=== PATIENT | female | born 1995 | race Two or more races ===

== ENCOUNTER 2020-08-21 13:12 | Outpatient (REF) | payer OTHER, SELFPAY | END 2020-08-21 13:13 | disposition home or self-care (01) | LOC: HO.LAB 13:12 | PROVIDERS: Visit Provider Internal Medicine | DX: Z20.828 Contact with and (suspected) exposure to other viral communicable diseases (principal) | CPT/HCPCS: C9803; U0003 ==

== ENCOUNTER 2020-08-26 09:49 | Outpatient (REF) | payer OTHER, SELFPAY | END 2020-08-26 09:50 | disposition home or self-care (01) | LOC: HO.LAB 09:49 | PROVIDERS: Visit Provider Internal Medicine | DX: Z20.828 Contact with and (suspected) exposure to other viral communicable diseases (principal) | CPT/HCPCS: C9803; U0003 ==

== ENCOUNTER 2020-09-17 10:16 | Outpatient (REF) | payer OTHER, SELFPAY | END 2020-09-17 10:17 | disposition home or self-care (01) | LOC: HO.LAB 10:16 | PROVIDERS: Visit Provider Internal Medicine | DX: Z20.828 Contact with and (suspected) exposure to other viral communicable diseases (principal) | CPT/HCPCS: C9803; U0003 ==

== ENCOUNTER 2025-05-01 08:16 | Outpatient (REF) | payer OTHER, SELFPAY ==
[2025-05-01 09:53] LABS: MANUAL DIFF FLAG NO
[2025-05-01 10:46] LABS: Hematocrit 33.4 % (37.0-47.0); Hemoglobin 10.5 g/dl (12.0-16.0); Imm Gran Abs Auto 0.10 X10*3/uL (0.00-0.03); Imm Gran Pct Auto 1.3 % (0.0-0.4); Lymphocytes Absolute Auto 2.1 X10*3/uL (1.2-4.9); Mean Corpuscular HGB Conc 31.4 g/dl (31.0-35.0); Mean Corpuscular Hemoglobin 25.4 pg (27.0-33.0); Mean Corpuscular Volume 80.7 fL (80.0-98.0); NRBC Abs Auto 0.000 X10*3/uL (0.0-0.012); NRBC Pct Auto 0.0 /100WBC (0.0-0.2); Platelet Count 387 X10*3/uL (160-400); Red Blood Count 4.14 X10*6/uL (4.20-5.50); White Blood Count 8.0 X10*3/uL (4.8-10.8)
[2025-05-01 11:14] LABS: Alanine Aminotransferase 22 U/L (0-31); Albumin Level 4.1 g/dL (3.5-5.0); Alkaline Phosphatase 91 U/L (39-117); Anion Gap 10 (12-20); Aspartate Amino Transferase 21 U/L (5-31); Blood Urea Nitrogen 14 mg/dL (9-16); Calcium 9.0 mg/dL (8.4-10.2); Carbon Dioxide 26 mmol/L (22-29); Chloride 109 mmol/L (96-108); Cholesterol 169 mg/dL (<200); Estimated Glomerular Filt Rate > 60; HDL Cholesterol 39 mg/dL (>40); Potassium 4.4 mmol/L (3.3-5.1); Sodium 141 mmol/L (135-145); Total Protein 7.0 g/dL (6.5-8.0); Triglycerides 92 mg/dL (<150)
[2025-05-01 11:56] LABS: Folate 12.6 ng/mL (> or = 4.0); Vitamin B12 621 pg/mL (200-900)
== END 2025-05-01 08:17 | disposition home or self-care (01) ==
LOC: HO.LAB 08:16
DX: Z76.89 Persons encountering health services in other specified circumstances (principal); N92.6 Irregular menstruation, unspecified; F32.A Depression, unspecified; F41.9 Anxiety disorder, unspecified; E66.9 Obesity, unspecified; Z68.41 Body mass index [BMI] 40.0-44.9, adult; M54.9 Dorsalgia, unspecified; G47.00 Insomnia, unspecified; Z13.220 Encounter for screening for lipoid disorders; Z00.00 Encounter for general adult medical examination without abnormal findings; Z13.21 Encounter for screening for nutritional disorder
CPT/HCPCS: 36415; 80053; 80061; 82306; 82607; 82746; 84443; 85025; 96127; 99202

== ENCOUNTER 2025-05-01 08:16 | Outpatient (AMB) | payer OTHER, SELFPAY ==
[2025-05-01 08:40] VITALS: BP 124/82; PULSE 74; O2SAT 98; BMI 42.1
--- NOTE | 2025-05-01 08:40 | MHC.PC.OV ---
Vital Signs 05/01/25 08:40 Height 5 ft 11 in Weight 302 lb BMI 42.1 BP 124/82 Blood Pressure Location Lt brachial Position Sitting Pulse 74 Pulse Source Pulse Oximeter Pulse Oximetry (%) 98 Oxygen Delivery Method Room Air Intake Visit Reasons: [employer] annual physical Allergies seafood Allergy (Severe, Verified 05/01/25 10:41) Hive Tobacco use date assessed: 05/01/25 Dental Screening Dental Screen Date: 05/01/25 Did you have a dental visit in the last 12 months?: Yes Did you have a dental problem in the last 6 months where you did not have access to dental care?: No Was dental information given to patient?: Patient has dentist HPI [employer] annual physical HPI Details 30 year old female coming to the office for the first time. Presenting for management of anxiety, insomnia, and back pain. Anxiety, Previously managed with hydroxyzine, used as needed for sleep disturbances related to anxiety. The patient reports that hydroxyzine was sometimes helpful. She experiences anxiety that affects her sleep and has been using melatonin as an alternative. The patient reports difficulty sleeping for one to two nights at a time, which is exacerbated by anxiety. She has been using melatonin to aid sleep. The patient screened positive for depression and reports episodes of crying and emotional distress related to personal relationships. She is interested in counseling but does not wish to start medication for depression at this time. The patient reports irregular menstrual cycles, with some cycles lasting up to seven or eight days and being heavy. She does not wish to pursue treatment for menstrual regulation at this time. The patient reports lower back pain for approximately one year, which worsens with prolonged standing and is somewhat relieved by lying down. She attributes some of the pain to breast size and is considering a breast reduction. The pain is described as tight and is located in the lower back. [facility] Family History (System 05/01/25 @ 10:41 by Arlyn Gallegos) Mother Diabetes Ovarian cancer HTN (hypertension) Father No problems noted. Brother No problems noted. Maternal Aunt Breast cancer Paternal Aunt Breast cancer Female Reproductive History Menstrual Duration of menses: 8-10 days control method: none Total pregnancies: 0 History of abnormal pap smear: No History of abnormal mammogram: No Questionnaire PHQ-9 Over the last 2 weeks, how often have you been bothered by any of the following problems? 1. Little interest or pleasure in doing things: more than half the days 2. Feeling down, depressed, or hopeless: more than half the days 3. Trouble falling or staying asleep, or sleeping too much: more than half the days 4. Feeling tired or having little energy: more than half the days 5. Poor appetite or overeating: not at all 6. Feeling bad about yourself - or that you are a failure or have let yourself or your family down: not at all 7. Trouble concentrating on things, such as reading the newspaper or watching television: several days 8. Moving or speaking so slowly that other people could have noticed. Or the opposite - being so fidgety or restless that you have been moving around a lot more than usual: not at all 9. Thoughts that you would be better off or of hurting yourself in some way: not at all Total score: 9 Depression Screening Interpretation: Positive (referral placed to therapy) Depression Screening Follow-up: Existing condition Depression Screening Done: Yes 64002 - PHQ-9 Billing: Yes Source: Developed by Drs. Herson Mcgovern, Asiya Chanel, Rolan Warner and colleagues, with an educational maryam from [employer]. Thrive Questionnaire Date Thrive assessed: 05/01/25 I am a: Patient What is your living situation today?: I have a steady place to live Within the past 12 months, did the food you bought not last and you didn't have the money to get more?: Sometimes True Within the past 12 months, did you worry whether your food would run out before you got money to buy more?: I choose not to answer this question Do you have trouble getting transportation to medical appointments?: No Do you have trouble paying your heating and electricity bill?: No Do you have trouble taking care of your child, family member or friend?: No Do you have trouble with day-to-day activities such as bathing, preparing meals, shopping, managing finances, etc.?: No Are you currently unemployed and looking for a job?: No Are you interested in more education?: No Currently or been in a relationship where the following occur: No concerns reported THRIVE Score: 1 AUDIT C Alcohol Use Questionnaire (AUDIT-C) 1. How often do you have a drink containing alcohol?: Never 3. How often do you have six or more drinks on one occasion?: Never Total Score: 0 JOSSELIN-7 AMB Questionnaire JOSSELIN-7 Date JOSSELIN - 7 assessed: 05/01/25 Feeling nervous, anxious, or on edge: 2 = More than half the days Not being able to stop or control worryin = Several days Worrying too much about different things: 2 = More than half the days Trouble relaxin = More than half the days Being so restless that it is hard to sit still: 1 = Several days Becoming easily annoyed or irritable: 2 = More than half the days Feeling afraid as if something awful might happen: 1 = Several days Total JOSSELIN-7 score (0-4 normal; 5-9 mild; 10-14 moderate; 15-21 severe): 11 Source: Developed by Drs. Herson Mcgovern, Asiya Chanel, Rolan Warner and colleagues, with an educational maryam from [employer]. JOSSELIN-7 Assessment Billing JOSSELIN-7 Assessment Tool: JOSSELIN-7 Assessment 01860 Review of Systems Const Denies body aches, Denies chills, Denies fever(s), Denies headache(s) and Denies poor appetite Eyes Reports no additional complaints ENT Denies dysphagia, Denies dizziness, Denies headache(s) and Denies odynophagia Card Denies chest pain, Denies syncope, Denies edema, Denies irregular heart rhythm, Denies lightheadedness and Denies dyspnea Resp Denies cough and Denies dyspnea GI Denies abdominal pain, Denies constipation, Denies dysphagia, Denies diarrhea, Denies nausea, Denies odynophagia and Denies vomiting Reports no additional complaints Musc Reports no additional complaints and Denies abnormal gait Skin/Breast Reports system reviewed and no additional complaints, except as documented Neuro Denies abnormal gait, Denies dizziness, Denies syncope and Denies headache(s) Psych Reports no additional complaints Physical exam (Primary Care) Vital Signs: Last Vital Signs Pulse 74 05/01/25 08:40 BP 124/82 05/01/25 08:40 Pulse Ox 98 05/01/25 08:40 Oxygen Delivery Method Room Air 05/01/25 08:40 BMI result Body Mass Index 42.1 Tobacco/Smoking Status: Tobacco use Status Tobacco use date assessed 05/01/25 05/01/25 08:50 Patient Tobacco Use Status Never used Tobacco 05/01/25 08:50 Tobacco use type Cigarette 05/01/25 08:50 PHQ-9: PHQ-9 Score PHQ-9: Total score 9 05/01/25 09:23 Depression Screening Interpretation: Positive (referral placed to therapy) Depression Screening Follow-up: Existing condition Thrive Assessment: Date of Thrive Assessment Date Thrive assessed 05/01/25 05/01/25 08:40 Currently or been in a relationship where the following occur: No concerns reported Const General: cooperative, healthy appearing, comfortable and no acute distress Orientation/consciousness: patient oriented x3 HENMT Head: Yes normocephalic Ears: hearing grossly normal bilaterally General nose exam: Normal external nose present Eyes General: appearance normal, both eyes and all related structures Conjunctivae: conjunctivae normal Neck Neck: Yes full ROM and Yes no lymphadenopathy Resp Effort & Inspection: normal respiratory effort Auscultation: clear to auscultation bilaterally, no crackles, no rales, no rhonchi and no wheezes Cardio Rate: regular rate Rhythm: regular rhythm Back/Spine/Pelvis Other: tenderness to lumbar spine and left paraspinal muscles. Neg SLR test patricia Skin General skin exam: no rashes or lesions noted Neuro General: patient oriented x3 Gait exam (Neuro): Normal gait present Extrem General: Yes normal to inspection, Yes full ROM and No edema Psych Affect: normal affect Attitude: cooperative Insight: Good insight present (Psych) Judgement: Good judgement present (Psych) Coding Level of Care Code New Pt Level 4 (19809) Diagnoses Irregular menses N92.6 Depression F32.A Anxiety F41.9 Obesity (BMI 30-39.9) E66.9 Back pain M54.9 Insomnia G47.00 Screening for hypercholesterolemia Z13.220 Additional Codes JOSSELIN-7 Assessment Billing - JOSSELIN-7 Assessment Tool: JOSSELIN-7 Assessment 04043 ([id number]) PHQ-9 - 93300 - PHQ-9 Billing: Yes ([id number]) Assessment & Plan Assessment & Plan (1) Irregular menses: Code(s): N92.6 - Irregular menstruation, unspecified Category: Medical Plan: Declining HRT at this time. Plan to refer to reducing salon attendant. (2) Depression: Code(s): F32.A - Depression, unspecified Category: Medical Plan: Patient tested positive for PHQ-9 today. She declines thoughts of self-harm at this time. She is not interested in medical management but would like a referral for counseling. Referral was placed today (3) Anxiety: Code(s): F41.9 - Anxiety disorder, unspecified Category: Medical Plan: See above (4) Obesity (BMI 30-39.9): Code(s): E66.9 - Obesity, unspecified Category: Medical Plan: Healthy diet and regular exercise is encouraged. Patient was counseled today on the risks and benefits of GLP-1 injections as well as the dosing schedule. She has no family history or personal history of thyroid disease and no gallbladder disease. Discussed with the patient the potential GI side effects of this medication. Plan to have repeat blood work after one month of therapy to monitor kidney and liver function before increasing the dose of this medication. Follow up in 2 months for a weight check. (5) Back pain: Code(s): M54.9 - Dorsalgia, unspecified Category: Medical Plan: Patient having mid to low back pain. Discussed this may be related to her posture and footwear as she does stand for prolonged periods of time which seems to exacerbate the pain. Recommend heat, lidocaine patches, tylenol and ibuprofen as needed. Referral was placed to PT. Plan to defer x-rays at this time (6) Insomnia: Code(s): G47.00 - Insomnia, unspecified Category: Medical Plan: Restarted on hydroxyzine as needed (7) Screening for hypercholesterolemia: Code(s): Z13.220 - Encounter for screening for lipoid disorders Category: Medical Plan: Blood work ordered Plan The patient will continue using hydroxyzine as needed for anxiety and insomnia, with a prescription sent to the pharmacy. A referral for counseling has been made to address depression, with the patient opting to start with therapy rather than medication. For back pain, physical therapy has been recommended, and supportive footwear is advised to alleviate symptoms. A referral for a breast reduction consultation has been initiated due to the contribution of breast size to back pain. Lidocaine patches have been prescribed for pain management. Routine blood work has been ordered to assess kidney, liver, electrolytes, thyroid, vitamins, and cholesterol levels. The patient has been advised on weight management strategies, including the potential use of weight loss injections, with a focus on maintaining a healthy diet and exercise regimen. Follow-up appointments have been scheduled to monitor progress and adjust treatment as necessary. This note was constructed using voice recognition software. While every effort has been made to ensure accuracy and type photography supervisor, still areas may have been included sometimes these areas may affect the content or meeting of the given symptoms. Total time spent caring for the patient today was 30 minutes. This includes time spent before the visit reviewing the chart, time spent during the visit, and time spent after the visit and documentation. Patient was informed and verbally consented to the use of an ambient scribe for clinic note documentation during this visit. Orders: Orders Vitamin D 25-OH Total Today E66.9 - Obesity, unspecified, Z00.00 - Encounter for general adult medical examination without abnormal findings Complete Blood Count Auto Diff Today E66.9 - Obesity, unspecified, Z00.00 - Encounter for general adult medical examination without abnormal findings PT Evaluation and Treatment Today M54.9 - Dorsalgia, unspecified Vitamin B12 and Folate Today E66.9 - Obesity, unspecified, Z13.21 - Encounter for screening for nutritional disorder TSH reflex Free T4 Today E66.9 - Obesity, unspecified, Z00.00 - Encounter for general adult medical examination without abnormal findings Comprehensive Met. Panel Today E66.9 - Obesity, unspecified, Z00.00 - Encounter for general adult medical examination without abnormal findings Lipid Panel Today Z13.220 - Encounter for screening for lipoid disorders Referrals Counseling Referral F32.A - Depression, unspecified, F41.9 - Anxiety disorder, unspecified LABEL CODER Referral Z12.4 - Encounter for screening for malignant neoplasm of cervix Medications: New hydroxyzine HCl 25 mg PO BEDTIME 90 tabs 0RF semaglutide (weight loss) (Ning) administer weeks 1 through 4 of therapy 0.25 mg (0.5 mL) subcut QWEEK 2 mL 0RF E66.9 - Obesity, unspecified lidocaine 5% leave on most painful area for up to 12 hrs 1 patch topical DAILY 15 ea 0RF
== END 2025-05-01 09:23 | disposition home or self-care (01) ==
LOC: HO.HMCH 08:17
DX: M54.9 Dorsalgia, unspecified (principal); N92.6 Irregular menstruation, unspecified; Z68.41 Body mass index [BMI] 40.0-44.9, adult; E66.9 Obesity, unspecified; F32.A Depression, unspecified; F41.9 Anxiety disorder, unspecified; G47.00 Insomnia, unspecified; Z13.220 Encounter for screening for lipoid disorders

== ENCOUNTER 2025-07-02 09:24 | Outpatient (AMB) | payer OTHER, SELFPAY ==
--- NOTE | 2025-07-02 09:29 | A.OFFPC_ITS ---
Vital Signs 07/02/25 09:31 Height 5 ft 11 in Weight 300 lb 2 oz BMI 41.9 BP 102/60 Blood Pressure Location Lt brachial Position Sitting Pulse 62 Pulse Source Pulse Oximeter Pulse Oximetry (%) 90 L Oxygen Delivery Method Room Air Intake Visit Reasons: f/u weight loss Heel Burnisher Required: No Accompanied by: Self / Same As Patient Allergies seafood Allergy (Severe, Verified 07/02/25 09:39) Hive Medication List - Last Reconciled 07/02/25 by Shabnam Murrell PA-C hydroxyzine HCl 25 mg PO BEDTIME Tobacco use date assessed: 05/01/25 Dental Screening Dental Screen Date: 07/02/25 Did you have a dental visit in the last 12 months?: Yes Did you have a dental problem in the last 6 months where you did not have access to dental care?: No Was dental information given to patient?: Patient has dentist HPI f/u weight loss HPI Details 30-year-old female with past medical his tory of anxiety, depression, irregular menses last seen 04/2025 coming in for follow up.? Presenting for a follow-up visit and evaluation of ear pain. Ear pain began on Wednesday, affecting the left ear, with hearing difficulty and a beeping sensation. No fever or difficulty swallowing was reported. Chronic back pain persists, with a previous referral for physical therapy not followed up due to contact information changes. Erzy-olt-ohyzixe lidocaine patches are used for pain management. The patient is actively involved in weight management, attending the gym for over six months with a personal computer network engineer, but has reached a weight loss plateau. Insurance denied weight loss medication coverage due to lack of documented attempts with other methods. Referral to weight management for potential surgical options was discussed. [facility] Family History Mother Diabetes Ovarian cancer HTN (hypertension) Father No problems noted. Brother No problems noted. 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 1. Little interest or pleasure in doing things: several days 2. Feeling down, depressed, or hopeless: several days 3. Trouble falling or staying asleep, or sleeping too much: not at all 4. Feeling tired or having little energy: several days 5. Poor appetite or overeating: not at all 6. Feeling bad about yourself - or that you are a failure or have let yourself or your family down: not at all 7. Trouble concentrating on things, such as reading the newspaper or watching television: not at all 8. Moving or speaking so slowly that other people could have noticed. Or the opposite - being so fidgety or restless that you have been moving around a lot more than usual: not at all 9. Thoughts that you would be better off or of hurting yourself in some way: not at all Total score: 3 90062 - PHQ-9 Billing: Yes Source: Developed by Drs. Herson Mcgovern, Asiya Chanel, Rolan Warner and colleagues, with an educational maryam from [employer]. Thrive Questionnaire Date Thrive assessed: 07/02/25 I am a: Patient What is your living situation today?: I have a steady place to live Within the past 12 months, did the food you bought not last and you didn't have the money to get more?: Sometimes True Within the past 12 months, did you worry whether your food would run out before you got money to buy more?: I choose not to answer this question Do you have trouble paying for medicines?: No Do you have trouble getting transportation to medical appointments?: No Do you have trouble paying your heating and electricity bill?: No Do you have trouble taking care of your child, family member or friend?: No Do you have trouble with day-to-day activities such as bathing, preparing meals, shopping, managing finances, etc.?: No Are you currently unemployed and looking for a job?: No Are you interested in more education?: No Please select the resources that you would like help with: None Currently or been in a relationship where the following occur: Controlled Emotionally THRIVE Score: 2 AUDIT C Alcohol Use Questionnaire (AUDIT-C) 3. How often do you have six or more drinks on one occasion?: Never Total Score: 0 JOSSELIN-7 AMB Questionnaire JOSSELIN-7 Date JOSSELIN - 7 assessed: 05/01/25 Source: Developed by Drs. Herson Mcgovern, Asiya Chanel, Rolan Warner and colleagues, with an educational maryam from [employer]. Review of Systems Const Denies body aches, Denies chills, Denies fever(s), Denies headache(s) and Denies poor appetite Eyes Reports no additional complaints ENT Reports as per HPI, Denies dysphagia, Denies dizziness, Denies headache(s) and Denies odynophagia Card Denies chest pain, Denies edema, Denies lightheadedness and Denies dyspnea Resp Denies dyspnea GI Denies abdominal pain, Denies dysphagia, Denies nausea, Denies odynophagia and Denies vomiting Reports no additional complaints Musc Reports no additional complaints and Denies abnormal gait Skin/Breast Reports system reviewed and no additional complaints, except as documented Neuro Denies abnormal gait, Denies dizziness and Denies headache(s) Psych Reports no additional complaints Physical exam (Primary Care) Vital Signs: Last Vital Signs Pulse 62 07/02/25 09:31 BP 102/60 07/02/25 09:31 Pulse Ox 90 L 07/02/25 09:31 Oxygen Delivery Method Room Air 07/02/25 09:31 BMI result Body Mass Index 41.9 Tobacco/Smoking Status: Tobacco use Status Tobacco use date assessed 05/01/25 07/02/25 09:36 Patient Tobacco Use Status Never used Tobacco 07/02/25 09:36 Tobacco use type Cigarette 07/02/25 09:36 PHQ-9: PHQ-9 Score PHQ-9: Total score 3 07/02/25 11:40 Thrive Assessment: Date of Thrive Assessment Date Thrive assessed 07/02/25 07/02/25 09:36 Currently or been in a relationship where the following occur: Controlled Emotionally Const General: cooperative, healthy appearing, comfortable and no acute distress Orientation/consciousness: patient oriented x3 HENMT Other: No blood in bilateral ear canals Head: Yes normocephalic Ears: hearing grossly normal bilaterally, TM normal on the right, Abnormal EAC present erythema on the left; no otic discharge and TM abnormal bulging on the left and erythematous on the left General nose exam: Normal external nose present Eyes General: appearance normal, both eyes and all related structures Conjunctivae: conjunctivae normal Neck Neck: Yes full ROM and Yes no lymphadenopathy Resp Effort & Inspection: normal respiratory effort Auscultation: clear to auscultation bilaterally, no crackles, no rales, no rhonchi and no wheezes Cardio Rate: regular rate Rhythm: regular rhythm Skin General skin exam: no rashes or lesions noted Neuro General: patient oriented x3 Gait exam (Neuro): Normal gait present Extrem General: Yes normal to inspection, Yes full ROM and No edema Psych Affect: normal affect Attitude: cooperative Insight: Good insight present (Psych) Judgement: Good judgement present (Psych) Coding Level of Care Code Est Pt Level 3 (90044) Diagnoses Depression F32.A Anxiety F41.9 Back pain M54.9 Insomnia G47.00 Morbid obesity E66.01 Otitis media H66.90 Anemia D64.9 Dermatitis L30.9 Additional Codes PHQ-9 - 00268 - PHQ-9 Billing: Yes ([id number]) Assessment & Plan Assessment & Plan (1) Depression: Code(s): F32.A - Depression, unspecified Category: Medical Plan: Referral was placed to counseling at last visit. She was seen by [facility] for intake but did not like counseling. She feels her anxiety and depression are well managed at this time and declining medication or counseling (2) Anxiety: Code(s): F41.9 - Anxiety disorder, unspecified Category: Medical Plan: See above (3) Back pain: Code(s): M54.9 - Dorsalgia, unspecified Category: Medical Plan: The patient was advised to follow up with physical therapy for back pain management. Csch-fak-fllyplg lidocaine patches are being used for pain relief. I updated the order for physical therapy and patient will reach out if she does not hear from PT in 1 week (4) Insomnia: Code(s): G47.00 - Insomnia, unspecified Category: Medical Plan: Restarted on hydroxyzine at her last visit and feels this has been working for her. (5) Morbid obesity: Code(s): E66.01 - Morbid (severe) obesity due to excess calories Category: Medical Plan: Healthy diet and regular exercise is encouraged. Injections were denied by insurance and referral was placed to weight management today. She has been working with a personal computer network engineer for diet and exercise and has been unable to lose significant weight. (6) Otitis media: Code(s): H66.90 - Otitis media, unspecified, unspecified ear Category: Medical Plan: The patient will be treated with oral antibiotics and ear drops due to the presence of an ear infection in the left ear. Instructions were given to avoid inserting anything into the ears during the healing process. Reach out if symptoms worsen or do not improve. (7) Anemia: Code(s): D64.9 - Anemia, unspecified Category: Medical Plan: The patient has a history of low hemoglobin, possibly related to irregular and heavy menstrual periods. A repeat blood test was ordered to monitor hemoglobin levels. (8) Dermatitis: Code(s): L30.9 - Dermatitis, unspecified Category: Medical Plan: Very mild contact dermatitis with the bra strap meats the back. Hydrocortisone sent to pharmacy to be used as needed no longer than 14 days at a time Plan During the visit, I discussed with the patient the presence of an ear infection and the need for antibiotics and ear drops. We also talked about the importance of avoiding inserting objects into the ears during the healing process. I explained the need for a repeat blood test to monitor hemoglobin levels due to a history of low hemoglobin. We reviewed the management of chronic back pain, including the use of lidocaine patches and the importance of following up with physical therapy. Additionally, we discussed weight management strategies and the possibility of surgical options, with a referral to weight management being made. This note was constructed using voice recognition software. While every effort has been made to ensure accuracy and director of quality control, still areas may have been included sometimes these areas may affect the content or meeting of the given symptoms. Total time spent caring for the patient today was 20 minutes. This includes time spent before the visit reviewing the chart, time spent during the visit, and time spent after the visit and documentation. Patient was informed and verbally consented to the use of an ambient scribe for clinic note documentation during this visit. Orders: Orders IRON PROFILE Today N92.6 - Irregular menstruation, unspecified PT Evaluation and Treatment Today M54.9 - Dorsalgia, unspecified Referrals Medical Weight Management Referral E66.01 - Morbid (severe) obesity due to excess calories Medications: New amoxicillin-pot clavulanate 875-125 mg 1 tab PO BID 14 tabs 0RF ciprofloxacin-dexamethasone 0.3-0.1 % 4 drps otic (ear) left BID 7.5 mL 0RF 7 days lactobacillus combo no.11 (Probiotic) do not crush/chew/cut; swallow whole OR may open and sprinkle in cold dr ink/food 1 cap PO DAILY 14 caps 0RF hydrocortisone 1% (Anti-Itch (hydrocortisone)) 1 appl topical TID PRN 28.4 grams 0RF skin irritation
[2025-07-02 09:31] VITALS: BP 102/60; PULSE 62; O2SAT 90; BMI 41.9
== END 2025-07-02 10:00 | disposition home or self-care (01) ==
LOC: HO.HMCH 09:25
DX: F32.A Depression, unspecified (principal); F41.9 Anxiety disorder, unspecified; E66.01 Morbid (severe) obesity due to excess calories; Z68.41 Body mass index [BMI] 40.0-44.9, adult; H66.92 Otitis media, unspecified, left ear; M54.9 Dorsalgia, unspecified; G47.00 Insomnia, unspecified; D64.9 Anemia, unspecified; L30.9 Dermatitis, unspecified

== ENCOUNTER → 2025-07-02 09:24 | Outpatient (BNVA) | payer OTHER, SELFPAY | DX: H66.92 Otitis media, unspecified, left ear (principal); M54.9 Dorsalgia, unspecified; F32.A Depression, unspecified; F41.9 Anxiety disorder, unspecified; G47.00 Insomnia, unspecified; E66.01 Morbid (severe) obesity due to excess calories; H66.90 Otitis media, unspecified, unspecified ear; D64.9 Anemia, unspecified; L30.9 Dermatitis, unspecified; N92.6 Irregular menstruation, unspecified; Z68.41 Body mass index [BMI] 40.0-44.9, adult | CPT/HCPCS: 96127; 99212 ==

== ENCOUNTER 2025-08-30 14:49 | Outpatient (REF) | payer OTHER, SELFPAY ==
[2025-08-30 18:09] LABS: Iron 20 mcg/dL (30-160); Percent Iron Saturation 6 % (15-50); Total Iron Binding Capacity 331 mcg/dL (228-428); Unsaturated Iron Binding 311 ug/dL
[2025-08-31 03:45] LABS: Syphilis Screen Nonreactive (Nonreactive)
[2025-08-31 04:22] LABS: HBsAGNum1 0.36 S/CO (0.00-0.99); HIV Num 1 0.07 S/CO (0.00-0.99); Hepatitis B Surface Antigen Negative (Negative); ~HepC Num1 0.11 S/CO (0.00-0.79); ~Hepatitis C Antibody Nonreactive (Nonreactive)
== END 2025-08-30 14:50 | disposition home or self-care (01) ==
LOC: HO.HHCL 14:49
PROVIDERS: Advanced Practice Midwife
DX: Z01.419 Encounter for gynecological examination (general) (routine) without abnormal findings (principal); N92.6 Irregular menstruation, unspecified; N63.20 Unspecified lump in the left breast, unspecified quadrant; E66.01 Morbid (severe) obesity due to excess calories; M54.9 Dorsalgia, unspecified; Z68.41 Body mass index [BMI] 40.0-44.9, adult; Z11.59 Encounter for screening for other viral diseases; Z11.4 Encounter for screening for human immunodeficiency virus [HIV]; Z20.2 Contact with and (suspected) exposure to infections with a predominantly sexual mode of transmission
CPT/HCPCS: 36415; 83540; 86780; 86803; 87340; 87389; 99385

== ENCOUNTER 2025-08-30 14:49 | Outpatient (AMB) | payer OTHER, SELFPAY ==
--- NOTE | 2025-08-30 14:52 | A.OFFVIS_ITS ---
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 She is not having any opening machine cleaner concerns but she would like STD screening. She is sexually active but with a female partner who she has been with for about 6 months. She does not need to worry about control she says she has not had sex with a male. She does want to get checked for STDs though. Inquired about getting checked for herpes but she has never had any lesions and she has never noticed any lesions for her any of her partners either. 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 She has a primary care provider. She is going to be having a visit by phone with bariatric 6 in September and is hoping for surgery. She has lost 30 lb by eating healthy and working out and going to the gym but she wants some help and wants to lose the weight for good Her mother had bariatric surgery and lost 200 lb she was 500 when she started. She has sometimes felt a mass on her right breast before her. But has not felt it recently and does not feel it today today during the exam we felt a mass together on the left side. [facility] Medical History (Updated 08/30/25 @ 16:15 by Ronda Perry CNM) Anxiety Depression Surgical History History of wisdom tooth extraction, class I edentulism History of ear surgery Family History Mother Diabetes Ovarian cancer HTN (hypertension) Father No problems noted. Brother No problems noted. 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 Current occupational exposures/hazards: No Cognitive needs: No Hearing needs: No Vision needs: Yes Female Reproductive History Menstrual Age of Menarche: 13 Date of last menstrual period: 08/23/25 control method: none Total pregnancies: 0 History of abnormal pap smear: No Physical Exam Vital Signs: Last Vital Signs BP 108/74 08/30/25 15:10 BMI result Body Mass Index 42.4 Const General: healthy appearing, comfortable, no acute distress, well developed and alert Nutritional Appearance: average body habitus Orientation/consciousness: patient oriented x3 Limitations: no limitations HEENT Head: Yes normocephalic Neck Neck: Yes normal visual inspection Chest Other: Both breasts are very large. Palpable smooth mass left breast about 02:00. Mammogram and ultrasound order and breast surgery consultation placed. Chest palpation & inspection: normal inspection of the chest Breast/axilla inspection: normal inspection of the breasts and normal inspection of the axillae Breast/axilla palpation: normal palpation of the breasts and normal palpation of the axillae Resp Effort & Inspection: normal respiratory effort GI Inspection: Yes normal to inspection, No Abdominal wall edema and No distended Palpation (GI): Soft to palpation and nontender General: Yes bladder normal to palpation External Female Exam: normal external appearance and normal appearance of the urethra Speculum Exam - Vagina: normal appearance of the vagina, normal palpation and normal vaginal discharge Speculum Exam - Cervix: normal appearance of the cervix, normal palpation and nontender Bimanual exam- vagina & uterus: normal bimanual exam, normal palpation, uterine size normal, bladder normal to palpation, consistency normal, normal palpation, uterine mobility normal, uterine shape normal, No Cervical tenderness present, non-tender and no cervical motion tenderness Bimanual Exam- Adnexa, other: normal adnexae, no masses, normal and No adnexal tenderness Neuro General: patient oriented x3 Assessment & Plan Assessment & Plan (1) Palpable mass of breast: Comment: Left breast 02:00 Code(s): N63.0 - Unspecified lump in unspecified breast Category: Medical (2) Irregular menses: Comment: Patient says her menses are monthly and last the same amount of days about 6 or 7,(so they may not be that irregular) Code(s): N92.6 - Irregular menstruation, unspecified Category: Medical (3) Morbid obesity: Comment: Patient has lost 30 lb on her own by eating better and going to the gym and is awaiting bariatric consultation... Code(s): E66.01 - Morbid (severe) obesity due to excess calories Category: Medical (4) Well woman exam with routine gynecological exam: Code(s): Z01.419 - Encounter for gynecological examination (general) (routine) without abnormal findings Category: Medical (5) Cervical cancer screening: Code(s): Z12.4 - Encounter for screening for malignant neoplasm of cervix Category: Medical (6) Screen for sexually transmitted diseases: Code(s): Z11.3 - Encounter for screening for infections with a predominantly sexual mode of transmission Category: Medical Plan Patient is here to establish opening machine cleaner care at this practice. She is not having any opening machine cleaner concerns but she would like STD screening. She is sexually active but with a female partner who she has been with for about 6 months. She does not need to worry about control she says she has not had sex with a male. She does want to get checked for STDs though. Inquired about getting checked for herpes but she has never had any lesions and she has never noticed any lesions for her any of her partners either. 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 She has a primary care provider. She is going to be having a visit by phone with bariatric 6 in September and is hoping for surgery. She has lost 30 lb by eating healthy and working out and going to the gym but she wants some help and wants to lose the weight for good Her mother had bariatric surgery and lost 200 lb she was 500 when she started. She has sometimes felt a mass on her right breast before her period, But has not felt it recently and does not feel it today today during the exam we felt a mass together on the left side. Pap smear was done as well as testing for STIs during the visit patient just finished her periods so end of menses was evident but her cervix pink and smooth and healthy. Testing ordered for STIs that she can get done either downstairs or at the hospital she is on the portal but we would call her for any positives.. I reviewed her menses they are not really all that irregular in that they do come every month last for about 6 or 7 days every month and she has never missed a period. Discussed that sometimes being severely underweight or overweight can often lead to problems with regular menses however thankfully she is still getting her regular menses she does not need control. She is looking forward to proceeding with further efforts to lose the weight and is intent on getting healthier there is a strong family history of diabetes and high blood pressure and she wants to avoid those diagnoses. I congratulated her on her efforts so far and her determination to become healthier. I am also placing a breast surgery consultation because of the mass in the left breast she does have an aunt with breast cancer but she developed it when she was older. Orders: Orders US breast LT limited Today N63.0 - Unspecified lump in unspecified breast CT NG by PCR Vag/Cerv Today Z01.419 - Encounter for gynecological examination (general) (routine) without abnormal findings Pap Smear Today Z01.419 - Encounter for gynecological examination (general) (routine) without abnormal findings MM tomosynthesis diagnostic LT Today N63.0 - Unspecified lump in unspecified breast Hepatitis B Surface Antigen Today E66.01 - Morbid (severe) obesity due to exc ess calories, M54.9 - Dorsalgia, unspecified, N63.0 - Unspecified lump in unspecified breast, N92.6 - Irregular menstruation, unspecified, Z01.419 - Encounter for gynecological examination (general) (routine) without abnormal findings, Z11.3 - Encounter for screening for infections with a predominantly sexual mode of transmission, Z12.4 - Encounter for screening for malignant neoplasm of cervix HIV Ab/Ag Today E66.01 - Morbid (severe) obesity due to excess calories, M54.9 - Dorsalgia, unspecified, N63.0 - Unspecified lump in unspecified breast, N92.6 - Irregular menstruation, unspecified, Z01.419 - Encounter for gynecological examination (general) (routine) without abnormal findings, Z11.3 - Encounter for screening for infections with a predominantly sexual mode of transmission, Z12.4 - Encounter for screening for malignant neoplasm of cervix Hepatitis C Antibody Today E66.01 - Morbid (severe) obesity due to excess calories, M54.9 - Dorsalgia, unspecified, N63.0 - Unspecified lump in unspecified breast, N92.6 - Irregular menstruation, unspecified, Z01.419 - Encounter for gynecological examination (general) (routine) without abnormal findings, Z11.3 - Encounter for screening for infections with a predominantly sexual mode of transmission, Z12.4 - Encounter for screening for malignant neoplasm of cervix Syphilis Screen Today E66.01 - Morbid (severe) obesity due to excess calories, M54.9 - Dorsalgia, unspecified, N63.0 - Unspecified lump in unspecified breast, N92.6 - Irregular menstruation, unspecified, Z01.419 - Encounter for gynecological examination (general) (routine) without abnormal findings, Z11.3 - Encounter for screening for infections with a predominantly sexual mode of transmission, Z12.4 - Encounter for screening for malignant neoplasm of cervix Bacterial Vaginosis Panel Today Z01.419 - Encounter for gynecological examination (general) (routine) without abnormal findings Referrals Breast Surgery Referral E66.01 - Morbid (severe) obesity due to excess calories, M54.9 - Dorsalgia, unspecified, N63.0 - Unspecified lump in unspecified breast, N92.6 - Irregular menstruation, unspecified, Z01.419 - Encounter for gynecological examination (general) (routine) without abnormal findings, Z11.3 - Encounter for screening for infections with a predominantly sexual mode of transmission, Z12.4 - Encounter for screening for malignant neoplasm of cervix Coding Level of Care Code New Pt Prev Care 18-39yr([id number] Diagnoses Palpable mass of breast N63.0 Irregular menses N92.6 Morbid obesity E66.01 Well woman exam with routine gynecological exam Z01.419 Cervical cancer screening Z12.4 Screen for sexually transmitted diseases Z11.3
[2025-08-30 15:10] VITALS: BP 108/74; BMI 42.4
== END 2025-08-30 16:09 | disposition home or self-care (01) ==
LOC: HO.HWSM 14:49
PROVIDERS: Visit Provider Advanced Practice Midwife
DX: Z01.419 Encounter for gynecological examination (general) (routine) without abnormal findings (principal); N63.21 Unspecified lump in the left breast, upper outer quadrant; E66.01 Morbid (severe) obesity due to excess calories; Z68.41 Body mass index [BMI] 40.0-44.9, adult; N92.6 Irregular menstruation, unspecified; Z11.3 Encounter for screening for infections with a predominantly sexual mode of transmission
CPT/HCPCS: 99385; 99459

== ENCOUNTER 2025-08-30 16:06 | Outpatient (REF) | payer OTHER, SELFPAY ==
[2025-08-31 16:45] LABS: Bacterial Vaginosis PCR POSITIVE (Negative); Candida Group PCR NOT DETECTED (Not Detect); Candida glab krusei PCR NOT DETECTED (Not Detect); Trichomonas vaginalis PCR NOT DETECTED (Not Detect)
[2025-08-31 17:16] LABS: CT PCR NOT DETECTED (Not Detect.); NG PCR NOT DETECTED (Not Detect.)
== END 2025-08-30 16:07 | disposition home or self-care (01) ==
LOC: HO.LNP 16:06
PROVIDERS: Visit Provider Advanced Practice Midwife
DX: Z01.419 Encounter for gynecological examination (general) (routine) without abnormal findings (principal); Z20.2 Contact with and (suspected) exposure to infections with a predominantly sexual mode of transmission; Z11.51 Encounter for screening for human papillomavirus (HPV)
CPT/HCPCS: 81515; 87491; 87591; 87626; 88175

== ENCOUNTER 2025-09-28 08:08 | Outpatient (REF) | payer OTHER, SELFPAY ==
--- NOTE | ~2025-09-28 | XR_ITS ---
EXAMINATION: XR CHEST CLINICAL INFORMATION: E66.01 - Morbid (severe) obesity due to excess calories COMPARISON: None available. TECHNIQUE: 2 views of the chest were obtained. FINDINGS: The cardiac, hilar, and mediastinal contours are normal. The lungs are clear bilaterally. There is no pneumothorax or pleural effusion. There is no focal osseous or soft tissue abnormality. XR/XR chest 2V IMPRESSION: Normal chest. Electronically signed by: Jhonatan Ng MD 09/28/2025 04:36 PM [facility]
[2025-09-28 16:15] LABS: MANUAL DIFF FLAG NO
[2025-09-28 17:15] LABS: Hematocrit 33.5 % (37.0-47.0); Hemoglobin 10.0 g/dl (12.0-16.0); Imm Gran Abs Auto 0.10 X10*3/uL (0.00-0.03); Imm Gran Pct Auto 1.1 % (0.0-0.4); Lymphocytes Absolute Auto 2.6 X10*3/uL (1.2-4.9); Mean Corpuscular HGB Conc 29.9 g/dl (31.0-35.0); Mean Corpuscular Hemoglobin 23.8 pg (27.0-33.0); Mean Corpuscular Volume 79.6 fL (80.0-98.0); NRBC Abs Auto 0.000 X10*3/uL (0.0-0.012); NRBC Pct Auto 0.0 /100WBC (0.0-0.2); Platelet Count 449 X10*3/uL (160-400); Red Blood Count 4.21 X10*6/uL (4.20-5.50); White Blood Count 9.0 X10*3/uL (4.8-10.8)
[2025-09-28 17:27] LABS: Appearance Urine Clear; Glucose Urine UA Negative (Negative); PH 6.5 (5.0-9.0); Specific Gravity - Urine 1.015 (1.005-1.025)
[2025-09-28 17:44] LABS: Alanine Aminotransferase 46 U/L (0-31); Albumin Level 4.3 g/dL (3.5-5.0); Alkaline Phosphatase 97 U/L (39-117); Anion Gap 7 (12-20); Aspartate Amino Transferase 28 U/L (5-31); Blood Urea Nitrogen 15 mg/dL (9-16); Calcium 9.3 mg/dL (8.4-10.2); Carbon Dioxide 30 mmol/L (22-29); Chloride 106 mmol/L (96-108); Cholesterol 191 mg/dL (<200); Estimated Glomerular Filt Rate > 60; HDL Cholesterol 39 mg/dL (>40); Iron 27 mcg/dL (30-160); Percent Iron Saturation 8 % (15-50); Potassium 4.1 mmol/L (3.3-5.1); Sodium 139 mmol/L (135-145); Total Iron Binding Capacity 339 mcg/dL (228-428); Total Protein 7.2 g/dL (6.5-8.0); Triglycerides 187 mg/dL (<150); Unsaturated Iron Binding 312 ug/dL
[2025-09-28 18:05] LABS: Ferritin 8 ng/mL (10-122)
[2025-09-28 18:16] LABS: Folate 9.8 ng/mL (> or = 4.0); Vitamin B12 642 pg/mL (200-900)
== END 2025-09-28 08:09 | disposition home or self-care (01) ==
LOC: HO.XRAY 08:08
PROVIDERS: Visit Provider Surgery
DX: Z00.00 Encounter for general adult medical examination without abnormal findings (principal); F32.A Depression, unspecified; F41.9 Anxiety disorder, unspecified; R35.89 Other polyuria; E66.01 Morbid (severe) obesity due to excess calories; K21.9 Gastro-esophageal reflux disease without esophagitis; N92.6 Irregular menstruation, unspecified; N63.0 Unspecified lump in unspecified breast; D50.9 Iron deficiency anemia, unspecified; M54.9 Dorsalgia, unspecified; G47.00 Insomnia, unspecified; R10.8A3 Suprapubic tenderness; L29.9 Pruritus, unspecified; G43.909 Migraine, unspecified, not intractable, without status migrainosus; Z68.41 Body mass index [BMI] 40.0-44.9, adult
CPT/HCPCS: 36415; 71046; 80053; 80061; 81003; 82306; 82607; 82728; 82746; 83036; 83525; 83540; 84425; 84443; 84590; 84630; 85025; 86140; 90471; 90656; 99395

== ENCOUNTER 2025-09-28 08:08 | Outpatient (AMB) | payer OTHER, SELFPAY ==
--- NOTE | 2025-09-28 09:32 | A.OFFVIS_ITS ---
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* Information Security Engineer Required: Yes Information Security Engineer Services: Information Security Engineer Present Information Interpreted: clinical only Allergies seafood Allergy (Severe, Verified 09/28/25 09:33) [facility] Medication List - Last Reconciled 09/28/25 by Andrew Ayala MD ascorbate calcium (vitamin C) 500 mg PO DAILY ferrous sulfate (Feosol) 325 mg PO DAILY hydroxyzine HCl 25 mg PO BEDTIME HPI HPI 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 42.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 ANALYST*: Details: Start time: 9.20am, End time: 10.20am ?I spent 50 minutes speaking with the patient on the phone plus an additional 10 minutes reviewing and updating records for a total of 60 minutes HPI Comments Details: Previous weight loss efforts: Self diets and exercise Wakes up: 5am, Sleeps: 11.30pm Breakfast: skips Lunch: 12pm (meat and rice) Dinner: 6pm (same as lunch) Snacks: 9am (sandwich), 8pm (sandwich) Exercise: none Beverages: Coffee: none, Tea: none, Soda: Sprite x4/wk, Juice: none, ETOH: none PFSH Medical History (Updated 09/28/25 @ 09:36 by Andrew Ayala MD) DJD (degenerative joint disease) GERD (gastroesophageal reflux disease) Anxiety Depression Surgical History History of wisdom tooth extraction, class I edentulism History of ear surgery Family History Mother Diabetes Ovarian cancer HTN (hypertension) Father No problems noted. Brother No problems noted. 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 [employer] Current occupational exposures/hazards: No Cognitive needs: No Hearing needs: No Vision needs: Yes Female Reproductive History Menstrual Age of Menarche: 13 Physical Exam Vital Signs: BMI result Body Mass Index 42.4 Telehealth Telehealth Telehealth Platform: Telephone Location of provider rendering services: practice address Location of patient: address on file Patient Identification confirmed using: Name, : Yes Telehealth method: voice only Patient verbally consented to treatment: Yes Patient verbally consented to billing insurance company: Yes Patient informed of any privacy concerns related to visit: Yes Minutes spent on Phone/Video with Pt.: 60 Assessment & Plan Assessment & Plan (1) Morbid obesity: Comment: Patient has lost 30 lb on her own by eating better and going to the gym and is awaiting bariatric consultation... Code(s): E66.01 - Morbid (severe) obesity due to excess calories Category: Medical Plan: 1.? Plan for lap sleeve gastrectomy. If diaphragmatic or ventral hernias are present at time of surgery, these will be repaired laparoscopically as well. I emphasized the importance of close follow-up, adherence to instructions and good communication. The surgery does not replace the need to change your lifestlyle which is the cause of the obesity problem. The surgery provides the motivation to try again to change your lifestyle, it reduces the appetite and make the transition to a better lifestyle easier and doubles the amount of weight you would lose compared to doing the lifestyle change without the surgery. You will need to be on a liquid diet with protein shakes for 2 weeks before surgery to maximize weight loss and boost your nutritional status to recover better from surgery and also for the first two weeks after surgery to let the stomach heal before we introduce other foods. After the first 2 weeks we will introduce protein bars and soft foods like scrambled eggs, cottage cheese and yogurt and after the 6th week will introduce meat, fish and cooked vegetables in small amounts. Over time you should be able to eat everything in small amounts. Side effects like nausea, vomiting, heartburn or abdominal pain are not common in the practice unless you are not following in the practice. This operation requires lifetime commitment to following in our practice and communication with me. You will much less weight and experience side effects if you don?t communicate or not following in the practice. Complications are rare and in our practice is about 1/10 of the national average. However, you can develop bleeding that may require transfusion (hasn?t happened for year in the practice), you may from complications (we did not have any deaths in the practice) and infections. Infections are usually a result of breakdown in communication or not understanding or following directions correctly. They are difficult to treat, they can happen during the first 6 weeks, they may require to be in the hospital for weeks or even months, not being able to eat by mouth and you may have drains and surgeries to try and correct the issue. Other risks and complications include possible conversion to an open procedure, leaks, small bowel obstruction, blood clots, cardiac, or pulmonary complications, as care home complications such as ulcers, insufficient weight loss and vitamin deficiencies. 2. Nutritional counseling. Start with one premade PREMIER protein (buy at [employer] or [employer]) shake (8oz of Premier and NOT the entire bottle) at 6am-8am, one protein bar (Fit Crunch protein bar, buy at [employer], or [employer]) at 9am-11am, another premade PREMIER protein shake (8oz of Premier and NOT the entire bottle) at 12pm-2pm, another [employer] protein bar at 3pm-5pm,?dinner at 6pm (10 forks of protein and 10 forks of salad/vegetables) and more [employer] protein bars at 8pm-10pm. So you do 2 protein shakes, 3 protein bars and one meal per day. Meal to include lean meat (beef, fish, pork, turkey, chicken), or romansh yogurt, or egg whites, or beans with a salad with olive oil and fruits (berries, pears, apples, kiwi). Avoid salt, breads, potatoes, rice, pasta, desserts. 3. Each shake would be drunk slowly, like coffee in a period of 2 hours. 4. Cut each bar in 4 pieces and eat each piece in 30min ?to make each bar last 2 hours. 5. I emphasized the importance of measuring accurately the food portion and measure it when serving the food in plate 6. The meal portions include 10 full-size forks of meat and 10 full-size forks of salad. You always eat the meat portion but you can replace up to 5 forks for salad/vegetables with rice, potatoes or pasta, or a fruit ?if you like. The less you do it the better weight loss will be. 7. One full-size fork is what it can be scooped on the fork without falling aside and not what can be bit with the fork. Use regular forks like those you find in a typical restaurant. 8.? Please buy the body composition scale we discussed and send me weight measurements as soon as possible and then once a week. Always include your diet and exercise plan. 9. The best choice would be to purchase a stationary bike at home that can track calories. If you get one, please start stationary bike at a resistance level of 4.0 Increase level by 1.0 every 3 min to a max level of 10.0. Stay at this level for 3 min and then return to level 4.0 and repeat same steps until 300 calories are burned. Goal is to burn 2000 calories per week on exercise 10.?It is important of avoiding and for at least 18 months postoperatively and has been discussed at the infosession. 11. Goal is to lose at least 1.5-2lbs per week 12. Goal to lose 10% of your weight before surgery, which is about 34lbs. Ultimate weight goal: 270lbs before surgery 13. Please follow the diet plan exactly without any change. If you don't like something about the plan or you feel hungry you need to communicate with me so I can help you revise the plan. You should not change the plan yourself 14. To be scheduled for EGD to assess the stomach's anatomy. The possibility of biopsies was discussed. Patient needs to avoid use of NSAIDs and aspirin for 1 week prior to EGD. You must be on liquids only the day before your endoscopy. Risks of perforation and bleeding was discussed with the patient. This will be an outpatient procedure with IV sedation. Orders: Orders H Pylori Breath Test Today E66.01 - Morbid (severe) obesity due to excess calories, K21.9 - Gastro-esophageal reflux disease without esophagitis Complete Blood Count Auto Diff Today E66.01 - Morbid (severe) obesity due to excess calories, K21.9 - Gastro-esophageal reflux disease without esophagitis Lipid Panel Today E66.01 - Morbid (severe) obesity due to excess calories, K21.9 - Gastro-esophageal reflux disease without esophagitis IRON PROFILE Today E66.01 - Morbid (severe) obesity due to excess calories, K21.9 - Gastro-esophageal reflux disease without esophagitis Zinc Today E66.01 - Morbid (severe) obesity due to excess calories, K21.9 - Gastro-esophageal reflux disease without esophagitis Vitamin A Today E66.01 - Morbid (severe) obesity due to excess calories, K21.9 - Gastro-esophageal reflux disease without esophagitis TSH reflex Free T4 Today E66.01 - Morbid (severe) obesity due to excess calories, K21.9 - Gastro-esophageal reflux disease without esophagitis Vitamin D 25-OH Total Today E66.01 - Morbid (severe) obesity due to excess calories, K21.9 - Gastro-esophageal reflux disease without esophagitis US abdomen comp w elastography Today E66.01 - Morbid (severe) obesity due to excess calories, K21.9 - Gastro-esophageal reflux disease without esophagitis XR chest 2V Today E66.01 - Morbid (severe) obesity due to excess calories, K21.9 - Gastro-esophageal reflux disease without esophagitis Insulin Today E66.01 - Morbid (severe) obesity due to excess calories, K21.9 - Gastro-esophageal reflux disease without esophagitis Hemoglobin A1c Today E66.01 - Morbid (severe) obesity due to excess calories, K21.9 - Gastro-esophageal reflux disease without esophagitis Comprehensive Met. Panel Today E66.01 - Morbid (severe) obesity due to excess calories, K21.9 - Gastro-esophageal reflux disease without esophagitis Vitamin B12 and Folate Today E66.01 - Morbid (severe) obesity due to excess calories, K21.9 - Gastro-esophageal reflux disease without esophagitis C Reactive Protein Today E66.01 - Morbid (severe) obesity due to excess calories, K21.9 - Gastro-esophageal reflux disease without esophagitis Vitamin B1 Today E66.01 - Morbid (severe) obesity due to excess calories, K21.9 - Gastro-esophageal reflux disease without esophagitis Ferritin Today E66.01 - Morbid (severe) obesity due to excess calories, K21.9 - Gastro-esophageal reflux disease without esophagitis ECG 12 lead EKG Today E66.01 - Morbid (severe) obesity due to excess calories, K21.9 - Gastro-esophageal reflux disease without esophagitis FL upper GI w air Today E66.01 - Morbid (severe) obesity due to excess calories, K21.9 - Gastro-esophageal reflux disease without esophagitis Referrals Behavioral Health Referral E66.01 - Morbid (severe) obesity due to excess calories, K21.9 - Gastro-esophageal reflux disease without esophagitis Nutrition/Dietitian Referral E66.01 - Morbid (severe) obesity due to excess calories, K21.9 - Gastro-esophageal reflux disease without esophagitis
[2025-09-28 09:36] VITALS: BMI 42.4
== END 2025-09-28 10:25 | disposition home or self-care (01) ==
LOC: HO.HBS 08:08
PROVIDERS: Visit Provider Surgery
DX: E66.01 Morbid (severe) obesity due to excess calories (principal); Z68.41 Body mass index [BMI] 40.0-44.9, adult
CPT/HCPCS: 98011

== ENCOUNTER 2025-09-28 14:53 | Outpatient (AMB) | payer OTHER, SELFPAY ==
--- OUTSIDE RECORDS SUMMARY | 2016-09-21 09:30 | XMS_ITS | Continuity of Care Document ---
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 Role Phone Dimitrios Chanel RDH Unavailable Unavailable Procedures Procedure Date Prophylaxis-Adult Oral Hygiene Instructions Bitewings-Four Films Intraoral-Periapical First Film 016 Intraoral-Periapical Each Additional Michael m Advance Directives Directive Yes / No Effective Date File Name No Information Encounters Encounter Description Practice Location Reason(s) For Visit Diagnoses Date Provider Providers Copied on Encounter [facility], [address] [place], [address], [place] tel:[phone] [facility] Dental Encounter for dental exam and cleaning w/o abnormal findings Darío Plunkett. [address], [id number] [address] [place] [address], [id number], [place]. tel:[phone] Family History Family Member Type Diagnosis Age At Onset No Information Payers Payer name Insurance type Covered libertarian ID Authoriza tion(s) D Medicaid [id number] Social History Type Description Quantity Date Captured Comments Sex Female Smoking Status No Information Chief Complaint And Reason For Visit No Information Reason For Referral Reason For Referral No Information History Of Present Illness Encounter Date Complaint History Of Prese nt Illness No Information Functional Status Date Functional Assessmen t No Information Instructions Date Instruction Additional Infor mation No Information Assessments Type Assessment Date No Information Patient Care Teams Name Effective Dates (start - stop) Status Members No Information
--- OUTSIDE RECORDS SUMMARY | 2017-03-18 05:15 | XMS_ITS | Continuity of Care Document ---
Author Organization [facility] vices Address [address] [place] [address] Phone Care Team Providers Care Mobile Home Set Up Person Name Role Phone Unavailable Unavailable Unavailable Allergies, Adverse Reactions, Alerts Substance Reaction Status Criticality fish derived Altered Heart Rate Active No Inform ation Medications Medication Instructions Dosage Effective Dates (start - stop) Status Comments Celebrex 100 mg capsule take 1 capsule by oral route 2 times every day 100 MG - Active ketoconazole 2 % topical cream apply by topical route 2 times every day to the affected area(s) Not Available - Active Procedures Procedure Date URINE TEST, BY VISUAL COLOR CO MPARISON IMMUNIZATION ADMIN Varicella VACCINE, Live, SC OFFICE/OUTPATIENT VISIT, EST OFFICE/OUTPATIENT VISIT, EST CYTOPATH TBS, C/V, MANUAL PREV VISIT, EST, AGE 18-39 PURE TONE HEARING TEST, AIR VISUAL ACUITY SCREEN URINE TEST, BY VISUAL COLOR CO MPARISON IMMUNIZATION ADMIN TDAP VACCINE >7 IM IMMUNIZATION ADMIN, EACH ADD Varicella VACCINE, Live, SC PREV VISIT, EST, AGE 18-39 OFFICE/OUTPATIENT VISIT, NEW Advance Directives Directive Yes / No Effective Date File Name No Information Encounters Encounter Description Practice Location Reason(s) For Visit Diagnoses Date Provider Providers Copied on Encounter OFFICE/OUTPA TIENT VISIT, EST [facility], [address] [place] [address], [id number], [place] tel:[phone] [facility] Headache (chief complaint) Encounter for immunizationH eadacheEncoun ter for test, result negative No Information OFFICE/OUTPA TIENT VISIT, [facility], [address] [place] [address], [id number], [place] tel:[phone] [facility] Musculoskelet al pain (chief complaint) Osteoarthriti s of both knees, unspecified osteoarthriti s typeVaginitis No Information PREV VISIT, EST, AGE 18-39 [facility], [address] [place] [address], [id number], [place] tel:[phone] [facility] Annual Exam (chief complaint) Encounter for gynecological examination (general) (routine) without abnormal findingsBreas t pain, leftRashObesi ty No Information PREV VISIT, EST, AGE 18-39 [facility], [address] [place] [address], [id number], [place] tel:[phone] [facility] annual preventative exam (chief complaint) Encntr for general adult medical exam w/o abnormal findingsVitam in D insufficiency Myopia, bilateralEnco unter for immunizationE ncounter for test, result negativeEncou nter for screening for respiratory tuberculosisS creening for depressionObe sityAtrial fibrillation, chronicEncoun ter for exam of ears and hearing w/o abnormal findingsEncou nter for exam of eyes and vision w/o abnormal findingsPain in left knee No Information OFFICE/OUTPA TIENT VISIT, NEW [facility], [address] [place] [address], [id number], [place] tel:[phone] [facility] AFib (chief complaint) Encounter for STD screeningObes ityAtrial fibrillation, chronicScreen ing examination for measles No Information Family History Family Member Type Diagnosis Age At Onset Problem (finding) Family history of Cance r, unknown Maternal grandmother Problem (finding) Arthritis Problem (finding) Family history of hyper tension Problem (finding) Family history of Heart disease Problem (finding) Family history of Diabetes mellitus Immunizations Vaccine Date Status Comments Varicella administered Note: vis given ; Source: New Immunization Record Varicella administered Note: vis given ; Source: New Immunization Record Tdap administered Note: vis given ; Source: New Immunization Record Payers Payer name Insurance type Covered democrat ID Dante braden(s) DIANA Aiken [id number] DIANA Aiken [id number] DIANA Aiken [id number] Social History Type Description Quantity Date Captured Comments Alcohol Use Details Unknown Caffeine Use Details Unknown Tobacco Use Status No Information Smoking Status Never smoker Sex Female Vital Signs Date / Time: Height Weight BMI Pulse Rate Blood Pressure Temperature Respiratory Rate Body Surface Area Head Circumference Head Circ. Percentile Wt./Morgan. Percentile BMI percentile Pulse Ox Inhaled Ox 11:09 AM 68.00 in 120.021 kg (264.60 lbs) 40.2 3 kg/m eter (2) 65 /min 119/73 mm[Hg] 98.60 F 16 /min 99 % Chief Complaint And Reason For Visit From encounter dated '03/18/2017 10:15'. Headache (chief complaint). Description: Onset: 2 Years. Pain scale: 0/10. Locations affected include bilateral temporal. Associated symptoms include nausea. Pertinent negatives include blurred vision, fever, visual aura or vomiting. Additional information: Reports a hx of migraine headache over the past 2 years. Had no headaches for a while now franki headache yesterday. Improved wby placing rag over the eyes and resting in dark room. Some relief with advil. Reason For Referral Reason For Referral No Information Plan Of Treatment Date Type Action Status Referral Ordered: Referrals: Orthopedic Surgery ordered Referral Ordered: Referrals: Physical Medicine and Rehabilitation Appointment date/timeframe: 03/03/2017 ordered Referral Ordered: Referrals: Cardiology ordered Patient Education Headache: After Your Vi sit completed Patient Education Osteoarthritis: After Y our Visit completed Patient Education Bacterial Vaginosis: Af ter Your Visit completed Patient Education Learning About Vitamin D completed History Of Present Illness Encounter Date Complaint History Of Prese nt Illness Headache Onset: 2 Years. Pain scale: 0/10. Locations affected include bilateral temporal. Associated symptoms include nausea. Pertinent negatives include blurred vision, fever, visual aura or vomiting. Additional information: Reports a hx of migraine headache over the past 2 years. Had no headaches for a while now franki headache yesterday. Improved wby placing rag over the eyes and resting in dark room. Some relief with advil. Musculoskeletal pain Onset: 1 ye ar ago. Location: knee. Context: there is no injury. Associated symptoms include crepitus, joint tenderness and popping. Pertinent negatives include difficulty initiating sleep and numbness. Additional information: c/o b/l knee pain. Left worse then right. Has had pain for over a year. Was told in [place] that she had arthritis. Left knee x-ray ordered and abnormal results as noted below. Reports no relief with APAP in the past. Annual Exam The patient stat es she uses condoms, male for control. Last LMP was 02/08/2017. Her menses is irregular. Negative for dysmenorrhea and menorrhagia. Negative for: breast discharge and breast pain. Positive for: breast lump(s) (side: left). Pertinent negatives include anxiety, depression, urinary incontinence, urinary urgency, vaginal discharge and vaginal itching. annual preventative exam Present s to the office for annual preventative exam. TB risk assessment: Was patient born outside [place]? noHas patient traveled outside [place]? Yes - DRHas patient been exposed to anyone with TB? noDoes patient have close contact with someone with + TST or IGRA? noDoes patient live with someone who has been in halfway, has lived in a senior care, injects IV drugs or has HIV? noHas patient eaten unpasteurized cheese from [place] or [place]? NoSeen for the first time at [facility] 2 weeks ago for: AFib New patient to [facility]. Moved from [place] to [place]. Here to establish PCP. 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 Her symptoms with the arrhythmia have included palpitations. Denies any chest pain. She is not on Antiplatelet/Anticoag. The patient has not had a thyroid function test. She reports being on Cardizem over a year ago. Was referred to cardiology and was seen by Dr. Diop 01-22-17. She was give a holter monitor for 24 hours. Has a follow up appt February 24.c/o b/l swelling in the knees, more in the left knee . In the morning feels left knee is swollen and cracking . Feels better as the day goes on at times. AFib Her symptoms wit h the arrhythmia have included palpitations. According to CHADS2 recommendations, antiplatelet therapy is indicated. She is not on Antiplatelet/Anticoag. The patient has not had a thyroid function test. Functional Status Date Functional Assessmen t Pain Score 0/10 Instructions Date Instruction Additional Infor raudel Educated verbally an d in writing about diagnosis and treatment. Given patient education hand out as seen attached to chart. Headache x 1 day only. May use OTC extra strenght tylemol if returns. If frequency of headaches increases return to office. Call if increasing severity of headache, increasing frequency, affecting function, or if not improved in 2 weeks. Related to Headache Educated verbally an d in writing about diagnosis and treatment. Given patient education hand out as seen attached to chart. Metonidazole as prescribed. Avoid scented products: douches, scented feminine hygiene products, deodorant soaps, body washes and body sprays. Wear cotton underwear. Wipe front to back. Related to Vaginitis Educated verbally an d in writing about diagnosis and treatment. Given patient education hand out as seen attached to chart. Reviewed x-ray results with patient. Plan - physical therapy and ortho referral. Celebrex for pain managment. Has lost 6 lbs over the past month. Encouraged to continue efforts. FOllow up with PCP in 2 weeks. Related to Osteoarthritis of both knees, unspecified osteoarthritis type Has lost 3 lbs in 2 weeks. Encouraged to continue efforts Related to Obesity No mass or abnormail ity on exam. Monitor area . If pain persists or patient feels mass after next menses will obtain breast US Related to Breast pain, left Follow up in 3 years for repeat PAP - unless advised to sooner by provider Related to Encounter for gynecological examination (general) (routine) without abnormal findings Topical as prescribed Related to Rash X-ray as ordered. Melvin duvall use OTC tylenol. Follow up next week for results and plan of care. Related to Pain in left knee Continue care with Nelli Diop and attend each appt as advised Related to Atrial fibrillation, chronic Negative depression screen today . Related to Screening for depression Gained additional we ight since visit 2 weeks ago. Stressed need for lifestyle changes. Reviewed labs as ordered last visit. Has been referred to snuff grinder and screener and has upcoming appt. Related to Obesity Positive TB Question er - testing ordered today. Related to Encounter for screening for respiratory tuberculosis Educated verbally an d in writing about diagnosis and treatment. Given patient education hand out as seen attached to chart. Increase calcium and vitamin D in the diet ( tuna, salmon, milk, orange juice, cod liver oil, fortified cereals, etc). Exposure to sunlight in the warmer months with sunscreen. OTC supplement : Vitamin D 1000 units by mouth daily Related to Vitamin D insufficiency Up to date with optometry Relate d to Myopia, bilateral Follow up in one [place] for repeat exam, sooner for any concerns Related to Encntr for general adult medical exam w/o abnormal findings STD prevention strat egies : abstinence, mutual monogamy with an uninfected partner, use of condoms, and limiting the number of sex partners. Related to Encounter for STD screening Not cleared for acti vity at this time. To focus on diet . 3 healthy meals and 2 snacks, adequate servings of fruits, vegetables, low fat dairy and lean meats. Referral to snuff grinder and screener as ordered. Labs as ordered. Related to Obesity No chest pain. Libert[place] l physical exam. Abnormal EKG. Rate normal. ST elevation. Reviewed with Dr. Duncan. He recommended she be seen by cardiology TAWNY. Medical assitant called and was able to secure her appointment today at 2 pm. Follow up with PCP next week. Related to Atrial fibrillation, chronic Assessments Type Assessment Date assessment Encounter for immunization assessment Headache assessment Encounter for test, re sult negative Mental Status Date Cognitive Assessment Orientation - Braxton ed to time, place, person, situation.Normal Orientation Patient Care Teams Name Effective Dates (start - stop) Status Members No Information
--- NOTE | 2025-09-28 15:03 | MHC.PC.OV ---
Vital Signs 09/28/25 15:04 Height 5 ft 11 in Weight 311 lb 6 oz BMI 43.4 BP 130/66 Blood Pressure Location Lt brachial Position Sitting Pulse 65 Pulse Source Pulse Oximeter Temp 96.9 F Temp Source Temporal Artery Scan Pulse Oximetry (%) 100 Oxygen Delivery Method Room Air Intake Visit Reasons: annual exam Intake Note: Patient is here today for a physical. 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 In review of the notes, patient has been following with weight management. Presenting for a follow-up visit to manage chronic conditions and discuss a recent bariatric surgery consultation. Regarding her bariatric surgery workup, she had an appointment this morning with Dr. Ayala, who has created a plan for her to lose over 30 pounds prior to surgery and has ordered extensive testing. The patient reports ongoing back pain and has not yet been contacted for a physical therapy referral. She has a history of iron deficiency anemia and stopped taking her prescribed iron supplement because it causes severe constipation, which previously led to a hospitalization five days after starting it. She has been advised to increase dietary iron through red meats and green leafy vegetables. The patient has been experiencing frequent headaches, occurring three times in the past week, described as significant pain with associated eye pain, nausea, and photophobia requiring her to be in a dark room. Tylenol has been ineffective for these headaches. She also reports chronic, almost daily nausea for the past several years, occurring at various times of the day, which she has not treated. She has a diagnosis of acid reflux in her chart and notes burning sensations when eating spicy foods like [place] salsa. pap smears: manager game appt coming up vaccines: given flu today [facility] Medical History DJD (degenerative joint disease) GERD (gastroesophageal reflux disease) Anxiety Depression Surgical History History of wisdom tooth extraction, class I edentulism History of ear surgery Family History Mother Diabetes Ovarian cancer HTN (hypertension) Father No problems noted. Brother No problems noted. 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 1. Little interest or pleasure in doing things: not at all 2. Feeling down, depressed, or hopeless: several days 3. Trouble falling or staying asleep, or sleeping too much: several days 4. Feeling tired or having little energy: more than half the days 5. Poor appetite or overeating: not at all 6. Feeling bad about yourself - or that you are a failure or have let yourself or your family down: not at all 7. Trouble concentrating on things, such as reading the newspaper or watching television: not at all 8. Moving or speaking so slowly that other people could have noticed. Or the opposite - being so fidgety or restless that you have been moving around a lot more than usual: not at all 9. Thoughts that you would be better off or of hurting yourself in some way: not at all Total score: 4 Depression Screening Interpretation: Positive Depression Screening Done: Yes Source: Developed by Drs. Herson Mcgovern, Asiya Chanel, Rolan Warner and colleagues, with an educational maryam from [employer]. Thrive Questionnaire Date Thrive assessed: 09/21/25 I am a: Patient What is your living situation today?: I have a steady place to live Within the past 12 months, did the food you bought not last and you didn't have the money to get more?: Never true Within the past 12 months, did you worry whether your food would run out before you got money to buy more?: Never true Do you have trouble paying for medicines?: No Do you have trouble getting transportation to medical appointments?: No Do you have trouble paying your heating and electricity bill?: No Do you have trouble taking care of your child, family member or friend?: No Do you have trouble with day-to-day activities such as bathing, preparing meals, shopping, managing finances, etc.?: No Are you currently unemployed and looking for a job?: No Are you interested in more education?: No Please select the resources that you would like help with: None Currently or been in a relationship where the following occur: No concerns reported THRIVE Score: 0 AUDIT C Alcohol Use Questionnaire (AUDIT-C) 1. How often do you have a drink containing alcohol?: Never Total Score: 0 JOSSELIN-7 AMB Questionnaire JOSSELIN-7 Date JOSSELIN - 7 assessed: 05/01/25 Feeling nervous, anxious, or on edge: 1 = Several days Not being able to stop or control worryin = Several days Worrying too much about different things: 1 = Several days Trouble relaxin = Several days Being so restless that it is hard to sit still: 1 = Several days Becoming easily annoyed or irritable: 2 = More than half the days Feeling afraid as if something awful might happen: 0 = Not at all Total JOSSELIN-7 score (0-4 normal; 5-9 mild; 10-14 moderate; 15-21 severe): 7 Source: Developed by Drs. Herson Mcgovern, Asiya Chanel, Rolan Warner and colleagues, with an educational maryam from [employer]. Review of Systems Const Denies body aches, Denies chills, Denies fever(s), Reports headache(s) and Denies poor appetite Eyes Reports no additional complaints ENT Denies dysphagia, Denies dizziness, Reports headache(s) and Denies odynophagia Card Denies chest pain, Denies syncope, Denies edema, Denies irregular heart rhythm, Denies lightheadedness and Denies dyspnea Resp Denies cough and Denies dyspnea GI Denies abdominal pain, Denies constipation, Denies dysphagia, Reports heartburn, Denies diarrhea, Reports nausea, Denies odynophagia and Denies vomiting Reports no additional complaints Musc Reports no additional complaints and Denies abnormal gait Skin/Breast Reports system reviewed and no additional complaints, except as documented Neuro Denies abnormal gait, Denies dizziness, Denies syncope and Reports headache(s) Psych Reports no additional complaints Physical exam (Primary Care) Vital Signs: Last Vital Signs Temp 96.9 F 09/28/25 15:04 Pulse 65 09/28/25 15:04 BP 130/66 09/28/25 15:04 Pulse Ox 100 09/28/25 15:04 Oxygen Delivery Method Room Air 09/28/25 15:04 BMI result Body Mass Index 43.4 Tobacco/Smoking Status: Tobacco use Status Tobacco use date assessed 09/28/25 09/28/25 15:04 Patient Tobacco Use Status Never used Tobacco 09/28/25 15:04 Tobacco use type Cigarette 09/28/25 15:04 e-Cigarette/Vaping Use Never Used 09/28/25 15:10 PHQ-9: PHQ-9 Score PHQ-9: Total score 4 09/28/25 15:16 Depression Screening Interpretation: Positive Thrive Assessment: Date of Thrive Assessment Date Thrive assessed 09/21/25 09/28/25 15:04 Currently or been in a relationship where the following occur: No concerns reported Const General: cooperative, healthy appearing, comfortable and no acute distress Orientation/consciousness: patient oriented x3 HENMT Head: Yes normocephalic Ears: hearing grossly normal bilaterally General nose exam: Normal external nose present Eyes General: appearance normal, both eyes and all related structures Conjunctivae: conjunctivae normal Neck Neck: Yes full ROM and Yes no lymphadenopathy Resp Effort & Inspection: normal respiratory effort Auscultation: clear to auscultation bilaterally, no crackles, no rales, no rhonchi and no wheezes Cardio Rate: regular rate Rhythm: regular rhythm GI Palpation (GI): Soft to palpation, not firm, Tenderness to palpation present (GI) (RLG/suprapubic region ), no guarding, not rigid and No Rebound tenderness present Skin General skin exam: no rashes or lesions noted Neuro General: patient oriented x3 Gait exam (Neuro): Normal gait present Extrem General: Yes normal to inspection, Yes full ROM and No edema Psych Affect: normal affect Attitude: cooperative Insight: Good insight present (Psych) Judgement: Good judgement present (Psych) Office Procedures Flu Questionnaire Does the patient have a severe egg allergy?: No Does the patient have severe life threatening allergies?: No Does the patient have a fever or illness today?: No Has the patient ever had Guillain-Mackey Syndrome?: No Has the patient ever had any past reaction to a flu shot?: No Immunizations Fluarix [id number] (PF) 45 mcg (15 mcg x 3)/0.5 mL IM syringe Performing Provider: Shabnam Murrell PA-C [facility] Administered by: Gabbie Washington LPN on 09/28/25 15:58 Dose Route Admin Location Dispensed Lot Number Expiration Date [facility] Poker Prop Player 0.5 mL IM Left Deltoid 0.5 mL [id number] 04/16/26 [id number] [employer] VIS Given Date VIS Provided VIS Publication Date 09/28/25 Single Vaccine 24 Eligibility Eligibility Date Funding Source Not [facility] Eligible 09/28/25 Private Coding Level of Care Code Est Pt Prev Care 18-39y(34103) Diagnoses Annual physical exam Z00.00 Depression F32.A Anxiety F41.9 Morbid obesity E66.01 GERD (gastroesophageal reflux disease) K21.9 Irregular menses N92.6 Palpable mass of breast N63.0 Iron deficiency anemia D50.9 Back pain M54.9 Insomnia G47.00 Suprapubic tenderness R10.8A3 Ear itching L29.9 Migraine G43.909 Assessment & Plan Assessment & Plan (1) Annual physical exam: Code(s): Z00.00 - Encounter for general adult medical examination without abnormal findings Category: Medical Plan: Patient is up to date on all recommended routine screenings and vaccinations for her age. She was given flu shot in the office today. blood work is up to date and has been reviewed with the patient. She does have updated blood work ordered as well. Plan to follow up in 6 months or sooner as needed or pending work up. (2) Depression: Code(s): F32.A - Depression, unspecified Category: Medical Plan: Feels good without medication or counseling at this time. (3) Anxiety: Code(s): F41.9 - Anxiety disorder, unspecified Category: Medical Plan: See above (4) Morbid obesity: Comment: Patient has lost 30 lb on her own by eating better and going to the gym and is awaiting bariatric consultation... Code(s): E66.01 - Morbid (severe) obesity due to excess calories Category: Medical Plan: Healthy diet and regular exercise is encouraged. Working with weight management. (5) GERD (gastroesophageal reflux disease): Code(s): K21.9 - Gastro-esophageal reflux disease without esophagitis Category: Medical Plan: Avoid trigger foods such as citrus, tomato products, soda, caffeine, spicy foods and other foods that may be irritating to your stomach. Avoid laying flat 3-4 hours after eating and elevate the head of the bed 30 degrees to prevent acid from moving into the esophagus. PLan to trial Omeprazole for nausea and GERD (6) Irregular menses: Comment: Patient says her menses are monthly and last the same amount of days about 6 or 7,(so they may not be that irregular) Code(s): N92.6 - Irregular menstruation, unspecified Category: Medical Plan: Continue to follow with manager game at this time. She does have anemia and cannot tolerate oral iron and referral was placed to hematology. (7) Palpable mass of breast: Comment: Left breast 02:00 Code(s): N63.0 - Unspecified lump in unspecified breast Category: Medical Plan: [facility]waiting appointment with [facility] next [facility]. (8) Iron deficiency anemia: Code(s): D50.9 - Iron deficiency anemia, unspecified Category: Medical Plan: Cannot tolerate PO iron and referral was placed to hematology for symptomatic anemia. (9) Back pain: Code(s): M54.9 - Dorsalgia, unspecified Category: Medical Plan: The patient was advised to follow up with physical therapy for back pain management. [id number] lidocaine patches are being used for pain relief. She will reach out to PT to schedule. (10) Insomnia: Code(s): G47.00 - Insomnia, unspecified Category: Medical Plan: Restarted on hydroxyzine and feels this has been working for her. (11) Suprapubic tenderness: Code(s): R10.8A3 - Suprapubic tenderness Category: Medical Plan: The patient reports pain on deep palpation in the suprapubic region, in an area where she occasionally feels a poking sensation. Dr. Ayala has already ordered an abdominal ultrasound which will be used to investigate this pain. A urinalysis will also be added to the ordered lab work to rule out a urinary cause for the pain. The plan is to await the results of the ultrasound. (12) Ear itching: Code(s): L29.9 - Pruritus, unspecified Category: Medical Plan: The patient complains of itchy, dry skin in both ears. Exam confirms dry skin without infection. The patient was advised she can start by applying Vaseline to the external ear. Drops for itching were offered as an alternative if Vaseline is not effective. (13) Migraine: Code(s): G43.909 - Migraine, unspecified, not intractable, without status migrainosus Category: Medical Plan: The patient describes headaches consistent with migraines, including photophobia and nausea, which are unresponsive to Tylenol. Sumatriptan will be prescribed for as-needed use at the onset of a headache. Plan This note was constructed using voice recognition software. While every effort has been made to ensure accuracy and assistant clinical nurse manager, still areas may have been included sometimes these areas may affect the content or meeting of the given symptoms. Total time spent caring for the patient today was 30 minutes. This includes time spent before the visit reviewing the chart, time spent during the visit, and time spent after the visit and documentation. Patient was informed and verbally consented to the use of an ambient scribe for clinic note documentation during this visit. Orders: Orders Influenza [id number] Immunization Today Z23 - Encounter for immunization UA CC w/rflx Micro + Cult Today R35.89 - Other polyuria Referrals Hematology & Oncology Referral D50.9 - Iron deficiency anemia, unspecified Medications: New sumatriptan succinate take 1 tab at onset of headache; if no relief may repeat 1 tab after at least 2 hrs; max = 4 tabs/24 hr PO 20 tabs 0RF omeprazole 20 mg PO DAILY 90 caps 0RF Discontinued ferrous sulfate (Feosol) Discontinued Reason: Patient no longer taking 325 mg PO DAILY 90 tabs 2RF D64.9 - Anemia, unspecified ascorbate calcium (vitamin C) Discontinued Reason: Patient no longer taking 500 mg PO DAILY 30 tabs 4RF D50.9 - Iron deficiency anemia, unspecified, D64.9 - Anemia, unspecified
[2025-09-28 15:04] VITALS: BP 130/66; PULSE 65; TEMP 36.1; O2SAT 100; BMI 43.4
== END 2025-09-28 15:49 | disposition home or self-care (01) ==
LOC: HO.HMCH 14:53
DX: Z00.00 Encounter for general adult medical examination without abnormal findings (principal); F32.A Depression, unspecified; E66.01 Morbid (severe) obesity due to excess calories; Z68.41 Body mass index [BMI] 40.0-44.9, adult; F41.9 Anxiety disorder, unspecified; K21.9 Gastro-esophageal reflux disease without esophagitis; N92.6 Irregular menstruation, unspecified; N63 Unspecified lump in breast; D50.9 Iron deficiency anemia, unspecified; M54.9 Dorsalgia, unspecified; G47.00 Insomnia, unspecified; R10.8A3 Suprapubic tenderness; L29.9 Pruritus, unspecified; G43.909 Migraine, unspecified, not intractable, without status migrainosus; Z23 Encounter for immunization

== ENCOUNTER → 2025-09-28 16:16 | Outpatient (BNV) | payer OTHER, SELFPAY | PROVIDERS: Visit Provider Radiology Diagnostic Radiology | DX: E66.01 Morbid (severe) obesity due to excess calories (principal) | CPT/HCPCS: 71046 ==

== ENCOUNTER 2025-10-04 12:22 | Outpatient (REF) | payer OTHER, SELFPAY ==
--- NOTE | ~2025-10-04 | MM_ITS ---
EXAMINATION: MM DIAGNOSTIC DIGITAL BREAST TOMOSYNTHESIS, BILATERAL Limited left breast ultrasound. CLINICAL INFORMATION: 30-year-old female with left breast palpable lumps. COMPARISON: Mammography: Baseline mammogram. TECHNIQUE: Digital breast mammography with tomosynthesis is performed in both the craniocaudal and mediolateral oblique views along with computer-aided detection (CAD). FINDINGS: There are scattered areas of fibroglandular density. Right: There are no significant masses, abnormal calcifications, or other abnormalities. Left: BB palpable marker the upper outer breast posterior depth without underlying abnormal finding at site of patient's palpable lump. BB marker in the lower inner breast posterior depth without underlying abnormal finding in the area the patient's palpable lump. No suspicious calcifications masses or other abnormal findings. Targeted color Doppler ultrasound in the left breast from 1-3 o'clock area of patient's palpable lump demonstrates normal fibroglandular breast tissue in a incidental normal-appearing intramammary lymph node at 2:00 15 cm from the nipple. Targeted color Doppler ultrasound scanning in the area of patient's breast palpable lump 40 6:00 demonstrates normal fibronodular breast tissue. Results are provided to the patient at time of visit by the technologist. MM/MM tomosynthesis diagnostic BI IMPRESSION: No mammographic or sonographic abnormal findings to account for the patient's left breast palpable lumps. Recommend clinical evaluation and follow-up. ASSESSMENT: BI-RADS Category 2: Benign RECOMMENDATION: Mammo at 40 or earlier if clinically needed Recommend clinical evaluation and follow-up. Electronically signed by: Danika Morfin DO 10/04/2025 01:35 PM [facility]
--- NOTE | 2025-10-04 13:32 | ECG_ITS ---
Test Reason : e66.01 Blood Pressure : */* mmHG Vent. Rate : 63 BPM Atrial Rate : 63 BPM P-R Int : 166 ms QRS Dur : 90 ms QT Int : 382 ms P-R-T Axes : 48 32 42 degrees QTcB Int : 390 ms Normal sinus rhythm with sinus arrhythmia Normal ECG No previous ECGs available Referred By: Andrew Ayala Electronically Signed By: Pankaj Collins
== END 2025-10-04 12:23 | disposition home or self-care (01) ==
LOC: HO.MAMMO 12:22
PROVIDERS: Absent Provider Surgery; Visit Provider Surgery
DX: Z01.419 Encounter for gynecological examination (general) (routine) without abnormal findings (principal); N63.20 Unspecified lump in the left breast, unspecified quadrant; E66.01 Morbid (severe) obesity due to excess calories; K21.9 Gastro-esophageal reflux disease without esophagitis
CPT/HCPCS: 76642; 77062; 77066; 93005

== ENCOUNTER → 2025-10-04 12:30 | Outpatient (BNV) | payer OTHER, SELFPAY | PROVIDERS: Absent Provider Surgery; Visit Provider Internal Medicine | DX: R92.8 Other abnormal and inconclusive findings on diagnostic imaging of breast (principal) | CPT/HCPCS: 77062; 77066 ==

== ENCOUNTER → 2025-10-04 13:32 | Outpatient (BNV) | payer OTHER, SELFPAY | PROVIDERS: Absent Provider Surgery; Visit Provider Internal Medicine Cardiovascular Disease | DX: E66.01 Morbid (severe) obesity due to excess calories (principal); Z68.41 Body mass index [BMI] 40.0-44.9, adult | CPT/HCPCS: 93010 ==

== ENCOUNTER 2025-10-08 14:29 | Outpatient (AMB) | payer OTHER, SELFPAY ==
--- NOTE | 2025-10-08 14:32 | A.OFFVIS_ITS ---
Vital Signs 3 10/08/25 14:43 Height 5 ft 11 in Weight 307 lb BMI 42.8 BP 131/73 Blood Pressure Location Lt brachial Position Sitting Pulse 72 Intake Visit Reasons: mobile mass left breast around 2 o'clock Intake Note: Patient is seen in office for evaluation of a lump of the left breast. 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 She denies a previous history of breast problems or breast surgery. She notes the lump to occasionally cause some discomfort. She denies over lying skin changes or nipple discharge. Her family history is significant for her mother having ovarian cancer in 2 aunts with breast cancer. Her mother underwent genetic testing and was negative. Patient underwent evaluation with mammogram and ultrasound on 10/04/2025. This revealed an incidentally noted lymph node in the 2 o'clock position approximately 15 cm from the nipple measuring approximately 0.6 cm in diameter. No other suspicious findings were identified. Patient's menarche was at age 13. She is 1 and premenopausal. [facility] Medical History DJD (degenerative joint disease) GERD (gastroesophageal reflux disease) Anxiety Depression Surgical History History of wisdom tooth extraction, class I edentulism History of ear surgery Family History Mother Diabetes Ovarian cancer HTN (hypertension) Father No problems noted. Brother No problems noted. 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 Current occupational exposures/hazards: No Cognitive needs: No Hearing needs: No Vision needs: Yes Female Reproductive History Menstrual Age of Menarche: 13 Total pregnancies: 0 Review of Systems Const All systems reviewed & are unremarkable except as noted in HPI and below Physical Exam Vital Signs: Last Vital Signs Pulse 72 10/08/25 14:43 BP 131/73 10/08/25 14:43 BMI result Body Mass Index 42.8 Const General: cooperative and no acute distress Nutritional Appearance: well nourished Orientation/consciousness: patient oriented x3 Limitations: no limitations HEENT Head: Yes normocephalic and Yes atraumatic Ears: hearing grossly normal bilaterally Chest Other: Left breast: No skin change, no nipple retraction, no nipple discharge, a vaguely palpable density is noted in the upper outer quadrant approximately 2 o'clock position with tenderness to palpation although a discrete mass is not noted. No enlarged lymph nodes in the axilla. Right breast: No skin change, no nipple retraction, no nipple discharge, no palpable mass, no enlarged lymph nodes Chest/axillae images: 2 1. Site of pain and vague fullness. Resp Effort & Inspection: normal respiratory effort, no audible wheezes, no cough and no respiratory distress Cardio Jugular venous distension: no JVD GI Inspection: Yes normal to inspection Skin Other: Warm, dry, no rash Neuro General: patient oriented x3 Extrem General: Yes no clubbing, cyanosis or edema Assessment & Plan Assessment & Plan (1) Palpable mass of breast: Comment: Left breast 02:00 Code(s): N63.0 - Unspecified lump in unspecified breast Category: Medical (2) Family history of breast cancer: Code(s): Z80.3 - Family history of malignant neoplasm of breast Category: Medical (3) Family history of ovarian cancer: Code(s): Z80.41 - Family history of malignant neoplasm of ovary Category: Medical Plan 30-year-old female patient with a family history of breast and ovarian cancer presenting with a palpable mass noted on physical examination in the upper outer quadrant of the left breast. Workup with mammogram and ultrasound was significant for an incidentally noted lymph node in approximately the same location. An area of tenderness at roughly 15 cm from the nipple 2 o'clock position corresponding to the ultrasound findings. This may be an intramammary lymph node which would explain the tenderness to palpation. We discussed genetic testing given her strong family history of breast and ovarian cancers. She wishes to proceed with this testing today. I have asked her to return in approximately one-month for repeat examination and review of the genetic testing results. She expressed understanding and agrees with the plan. Coding Level of Care Code New Pt Level 4 (50238) Diagnoses Palpable mass of breast N63.0 Family history of breast cancer Z80.3 Family history of ovarian cancer Z80.41
[2025-10-08 14:43] VITALS: BP 131/73; PULSE 72; BMI 42.8
== END 2025-10-08 14:57 | disposition home or self-care (01) ==
LOC: HO.HGS 14:30
PROVIDERS: Visit Provider Surgery
DX: N63.0 Unspecified lump in unspecified breast (principal); Z80.3 Family history of malignant neoplasm of breast; Z80.41 Family history of malignant neoplasm of ovary
CPT/HCPCS: 99204

== ENCOUNTER → 2025-10-08 14:29 | Outpatient (BNVA) | payer OTHER, SELFPAY | PROVIDERS: Visit Provider Surgery | DX: N63.21 Unspecified lump in the left breast, upper outer quadrant (principal); Z80.3 Family history of malignant neoplasm of breast; Z80.41 Family history of malignant neoplasm of ovary | CPT/HCPCS: 99202 ==